=== PATIENT | female | born 1975 | race Two or more races ===

== ENCOUNTER 2017-09-04 12:07 | Outpatient (CLI) | payer OTHER | END 2017-09-04 12:22 | disposition home or self-care (01) | LOC: MAMO-SONO 12:07 | DX: Z12.31 Encounter for screening mammogram for malignant neoplasm of breast (principal); N63.10 Unspecified lump in the right breast, unspecified quadrant; N63.20 Unspecified lump in the left breast, unspecified quadrant; N64.4 Mastodynia ==

== ENCOUNTER 2017-09-04 13:25 | Outpatient (CLI) | payer OTHER | END 2017-09-04 13:43 | disposition home or self-care (01) | LOC: NUCLEAR | DX: M81.0 Age-related osteoporosis without current pathological fracture (principal); Z13.820 Encounter for screening for osteoporosis ==

== ENCOUNTER 2019-06-06 10:25 | Outpatient (CLI) | payer OTHER | END 2019-06-06 10:33 | disposition home or self-care (01) | LOC: MAMO-SONO 10:25 | DX: Z12.31 Encounter for screening mammogram for malignant neoplasm of breast (principal); N63.10 Unspecified lump in the right breast, unspecified quadrant; N63.20 Unspecified lump in the left breast, unspecified quadrant ==

== ENCOUNTER 2022-07-14 06:07 | Emergency (ER) | payer OTHER ==
[~2022-07-14] VITALS: Ht 160 cm; Wt 86.2 kg
[2022-07-14] MEDS ORDERED: BUDESONIDE-FO10.2 G1 IH (06:23)
[2022-07-14] MEDS ORDERED: PROAIR RESPICL90 MCG (06:23)
== END 2022-07-14 10:06 | disposition home or self-care (01) ==
LOC: ER 06:07
DX: R10.13 Epigastric pain (principal)

== ENCOUNTER 2023-06-09 18:20 | Emergency (ER) | payer OTHER ==
[~2023-06-09] VITALS: Ht 167.6 cm; Wt 81.6 kg
[~2023-06-09 18:20] MED LIST: BUDESONIDE-FO10.2 G1 IH; DUI500 PO; PEPCID AC20 MG PO; PROAIR RESPICL90 MCG
[2023-06-09] MEDS ORDERED: SYMBICORT 16010.2 GM (18:25)
[2023-06-09 20:06] LABS: HEMATOCRIT 39.4 % (36.0-45.00); HEMOGLOBIN 13.5 g/dL (12.0-15.00); MEAN CELL VOLUME 90.3 fL (80.00-100.00); MEAN CORPUSCULAR HEMOGLOBIN 30.9 pg (27.00-32.0); MEAN CORPUSCULAR HGB CONC 34.2 g/dl (32.0-36.0); PLATELET COUNT 246 K/uL (150-450); RED BLOOD COUNT 4.37 M/uL (4.00-6.00); RED CELL DISTRIBUTION WIDTH 13.6 % (11.5-14.5)
[2023-06-09 20:45] LABS: ALBUMIN 4.1 gm/dL (3.4-5.0); BILIRUBIN TOTAL 0.33 mg/dL (0.3-1.2); CALCIUM 9.5 mg/dL (8.5-10.1); CREATININE SERUM 0.96 mg/dL (0.55-1.02); GFR 62.57; GLOBULINA 5.2 G/DL (2.4-3.5); POTASSIUM 3.65 mEq/L (3.5-5.1); TOTAL PROTEIN 9.3 gm/dL (6.4-8.2)
[2023-06-09 23:35] LABS: HEMATOCRIT 36.9 % (36.0-45.00); HEMOGLOBIN 12.3 g/dL (12.0-15.00); MEAN CORPUSCULAR HEMOGLOBIN 30.2 pg (27.00-32.0); MEAN CORPUSCULAR HGB CONC 33.5 g/dl (32.0-36.0); PLATELET COUNT 238 K/uL (150-450); RED BLOOD COUNT 4.09 M/uL (4.00-6.00); RED CELL DISTRIBUTION WIDTH 13.3 % (11.5-14.5)
== END 2023-06-10 00:02 | disposition home or self-care (01) ==
LOC: ER 18:20
PROVIDERS: General Practice
DX: K29.70 Gastritis, unspecified, without bleeding (principal); R10.9 Unspecified abdominal pain; Z20.822 Contact with and (suspected) exposure to COVID-19

== ENCOUNTER 2024-07-10 22:40 | Emergency (ER) | payer OTHER ==
[~2024-07-10] VITALS: Ht 160 cm; Wt 88.5 kg
[~2024-07-10 22:40] MED LIST changes: +SYMBICORT 16010.2 GM
[2024-07-11] MEDS ORDERED: FAMOTIDINE/PF 20 MG/2 ML VIAL IV PUSH STA (01:33)
[2024-07-11] MEDS ORDERED: PROMETHAZINE HCL 50 MG/ML AMPUL IM STA (01:33)
[2024-07-11] MEDS ORDERED: 0.9 % SODIUM CHLORIDE 500 ML IV ONE (01:45)
[2024-07-11] MEDS ORDERED: FAMOTIDINE/PF 20 MG/2 ML VIAL ONE (01:47)
[2024-07-11] MEDS ORDERED: PROMETHAZINE HCL 50 MG/ML AMPUL IM ONE (01:47)
[2024-07-11 02:17] LABS: HEMOGLOBIN 12.6 g/dL (12.0-15.00); MEAN CORPUSCULAR HEMOGLOBIN 30.4 pg (27.00-32.0); MEAN CORPUSCULAR HGB CONC 34.2 g/dl (32.0-36.0); PLATELET COUNT 247 K/uL (150-450); RED BLOOD COUNT 4.16 M/uL (4.00-6.00); RED CELL DISTRIBUTION WIDTH 13.9 % (11.5-14.5)
[2024-07-11 02:37] LABS: ALBUMIN 3.7 gm/dL (3.4-5.0); BILIRUBIN TOTAL 0.52 mg/dL (0.3-1.2); CALCIUM 8.8 mg/dL (8.5-10.1); CREATININE SERUM 0.97 mg/dL (0.55-1.02); GFR 61.56; GLOBULINA 4.9 G/DL (2.4-3.5); POTASSIUM 3.73 mEq/L (3.5-5.1); TOTAL PROTEIN 8.6 gm/dL (6.4-8.2)
[2024-07-11] MEDS ORDERED: ZOFRAN8 MG PO (04:56)
[2024-07-11] MEDS ORDERED: PROTONIX40 MG PO (04:56)
[2024-07-11] MEDS ORDERED: PEPCID40 MG PO (04:56)
== END 2024-07-11 05:00 ==
LOC: ER 22:43
PROVIDERS: General Practice
DX: R11.10 Vomiting, unspecified (principal); K29.70 Gastritis, unspecified, without bleeding
CPT/HCPCS: 36415; 96365; 96372; 99282; J2250; J3490; J7042